=== PATIENT | female | born 1980 | race Caucasian/White ===

== ENCOUNTER 2021-01-30 14:56 | Emergency (ER) | payer OTHER ==
[2021-01-30] MEDS ORDERED: methylPREDNISolone Sod Succ/PF 125 MG/2 ML VIAL ONE (16:08)
[2021-01-30] MEDS ORDERED: diphenhydrAMINE 50 MG/ML VIAL ONE (16:09)
[2021-01-30] MEDS ORDERED: Metoclopramide HCl 10 MG/2 ML VIAL ONE (16:09)
== END 2021-01-30 17:47 | disposition home or self-care (01) ==
LOC: CSHERS 14:56
DX: G43.909 Migraine, unspecified, not intractable, without status migrainosus (principal)
CPT/HCPCS: 70450; 96365; 96375; J1200; J2765; J2930

== ENCOUNTER 2023-01-17 18:39 | Emergency (ER) | payer BC, OTHER ==
[~2023-01-17 18:39] MED LIST: Iopamidol 300 61% 100 ML VIAL FS ONE
[2023-01-17] MEDS ORDERED: Ketorolac Tromethamine 30 MG/ML VIAL ONE (19:54)
[2023-01-17] MEDS ORDERED: Ondansetron PF 4 MG/2 ML Vial ONE (19:54)
[2023-01-17 20:20] LABS: Bilirubin Neg (Negative); Blood, Urine 10 (Negative); Clarity Slightly Cloudy (Clear); Glucose, Urine (Dipstick) Normal (Negative); Ketone, Urine Negative (Negative); Leukocyte 100 (Negative); Nitrite Negative (Negative); Protein, Urine (Dipstick) Negative (Neg-Trace); Specific Gravity, Urine 1.015 (1.005-1.030)
[2023-01-17 20:23] LABS: Pregnancy Test - Urine (BHCG) Negative (Negative); Pregu Control Background? CLEAR/WHITE (CLR/WHITE); Pregu Control Bar Appear? YES (CONTROL BAR); Specific Gravity 1.015 (1.002-1.036)
[2023-01-17 20:30] LABS: RBC/HPF 0-3 HPF (0-3)
[2023-01-17 20:31] LABS: #Basophils 0.1 10x3/uL (0.0-0.2); #Eosinphils 0.4 10x3/uL (0.0-0.5); #Monocytes 0.7 10x3/uL (0.0-1.1); #Neutrophils 7.6 10x3/uL (1.5-8.4); %Basophils 0.6 % (0.0-2.0); %Eosinophils 2.9 % (0.0-6.0); %Lymphocytes 27.3 % (18.0-47.0); %Monocytes 5.8 % (0.0-10.0); %Neutrophils 63.2 % (40.0-75.0); Bacteria/HPF Rare-Few HPF (None Seen); Hemoglobin 13.9 g/dL (12.0-15.5); Mean Corpuscular HGB CONC 32.4 g/dL (32.0-36.0); Mean Corpuscular Volume 80.3 fl (81.6-98.3); Mean Platelet Volume 9.5 fl (7.4-10.4); Platelet Count 421 10x3/uL (150-450); RBC Distribution Width 13.1 % (11.5-14.5); Red Blood Cell (RBC) Count 5.34 10x6/uL (3.90-5.03)
[2023-01-17 20:33] LABS: ALT (SGPT) 33 U/L (8-55); AST (SGOT) 23 U/L (5-34); Albumin 3.9 g/dL (3.5-5.0); Alkaline Phosphatase 101 U/L (40-110); Anion Gap 16 mmol/L (10-20); BUN (Urea Nitrogen) 5 mg/dL (7.0-18.7); Bilirubin, Total 0.3 mg/dL (0.2-1.2); Calc. Creatinine Clearance 0 mL/min (70-130); Calcium 8.9 mg/dL (7.8-10.44); Carbon Dioxide 23 mmol/L (22-29); Chloride 104 mmol/L (98-107); Estimated GFR 112; Globulin 3.2 g/dL (2.4-3.5); Glucose 99 mg/dL (70-105); Potassium 3.5 mmol/L (3.5-5.1); Protein, Total 7.1 g/dL (6.0-8.3); Sodium 139 mmol/L (136-145)
[2023-01-17] MEDS ORDERED: cefTRIAXone (ROCEPHIN) 1 GM VIAL ONE (21:26)
== END 2023-01-17 22:00 | disposition home or self-care (01) ==
LOC: CSHERS 18:39
DX: N39.0 Urinary tract infection, site not specified (principal)
CPT/HCPCS: 74177; 80053; 81003; 81015; 81025; 85025; 96374; 96375; J0696; J1885; J2405; Q9967